=== PATIENT | female | born 1930 | race Caucasian/White ===

== ENCOUNTER 2019-09-25 14:10 | Emergency (ER) | payer OTHER ==
[~2019-09-25] VITALS: Ht 152.4 cm; Wt 54.4 kg
--- NOTE | ~2019-09-25 | EMS ---
[address] [address] EMS Patient Care Report Name: PATTIE SANCHEZ Room #: DEP RICKY Meza#: [id number] Admission: 09/25/19 Attend Phys: Discharge: 09/25/19 Date of : [birth year] Report #: [id number] THIS REPORT FOR: //name// Report Transmitted: 09/25/2019 21:41 EMS Care Summary [facility] Incident [id number] @ 09/25/2019 13:41 Incident Location [address] [place] [address] Patient PATTIE SANCHEZ Female, 89 Years 1930 Patient Address [address] [place] [address] Patient History Dementia,Alzheimer's,Bipolar II Disorder, Patient Allergies No known allergies, Patient Medications Acetaminophen, Famotidine, Amlodipine, Aspirin, Chief Complaint syncope Disposition Transported No Lights/[place] Dispatch Reason Stroke/CVA Transported To [facility] Narrative EMS was dispatched for a patient possibly having a stroke. Prior to EMS arrival proper PPE was donned including eye protection, gloves and a surgical [address] [address] EMS Patient Care Report Name: PATTIE SANCHEZ Room #: DEP Derrick#: [id number] Admission: 09/25/19 Attend Phys: Discharge: 09/25/19 Date of : [birth year] Report #: [id number] mask. Upon EMS arrival the patient was sitting in a wheel chair outside of the front door of her long-term. Nursing staff advised the patient was sitting outside with her friends when she slumped over in her chair for about 3 minutes. The patient advised she was ok and feeling good but probably should get checked out. EMS performed a stroke scale test with nothing found. EMS loaded the patient onto the cot and placed her in the ambulance. EMS performed a 12 lead ECG, blood glucose level and took a set of vitals. The patient maintained a GCS of 15 throughout transport. The patient was taken to [facility] for further evaluation. Initial Vitals @13:55P: 62,Pain: 0/10,GCS: 15,SpO2: 95,PR Suspected: false @14:01P: 62,R: 18,BP: 115/67,Pain: 0/10,GCS: 15,SpO2: 97,Revised Trauma: 12,PR Suspected: false @13:53P: 65,R: 18,BP: 115/70,Pain: 0/10,GCS: 15,Glucose: 108,SpO2: 95,Revised Trauma: 12,PR Suspected: false Assessments @13:47MENTAL:Person Oriented,Time Oriented,Place Oriented,Event Oriented,SKIN:HEENT:Head/Face: No Abnormalities,Neck/Airway: No Abnormalities,LUNG SOUNDS:General: No Abnormalities,ABDOMEN:General: No Abnormalities,PELVIS//GI:No Abnormalities,EXTREMITIES:Left Arm: No Abnormalities,Right Arm: No Abnormalities,Left Leg: No Abnormalities,Right Leg: No Abnormalities,PULSE:NEURO:No Abnormalities, Impression Syncope / Fainting Procedures @13:47ALS AssessmentResponse: UnchangedSucceeded@13:5512-Lead ECGResponse: UnchangedSucceeded Timeline 13:39,Call Received 13:39,Psap Call 13:41,Dispatched 13:42,En Route 13:46,On Scene 13:47,At Patient 13:47,ALS Assessment,Response: UnchangedSucceeded, 13:53,BP: 115/70 M,PULSE: 65,RR: 18 R,SPO2: 95 Ox,ETCO2: ,B,PAIN: 0,GCS: 15, 13:55,12-Lead ECG,Response: UnchangedSucceeded, 13:55,BP: / M,PULSE: 62,RR: R,SPO2: 95 Ox,ETCO2: ,BG: ,PAIN: 0,GCS: 15, 13:58,Depart Scene 14:01,BP: 115/67 M,PULSE: 62,RR: 18 R,SPO2: 97 Ox,ETCO2: ,BG: ,PAIN: 0,GCS: 15, [address] [address] EMS Patient Care Report Name: WES SANCHEZN Room #: DEP RICKY Meza#: [id number] Admission: 09/25/19 Attend Phys: Discharge: 09/25/19 Date of : [birth year] Report #: [id number] 14:05,At Destination 14:21,Call Closed Disclaimer v1.1 Copyright 2020 [employer] This EMS Care Summary contains data elements from the applicable legal record (which may be displayed differently). It is designed to provide pertinent information for the following purposes: continuity of care, clinical quality, and state data reporting. The complete legal record is available to ED staff and administrators of the receiving hospital in [employer] Patient Tracker. All data is provided "as is."
[2019-09-25 14:45] LABS: ABSOLUTE NEUTROPHILS 3.6 thou/uL (1.4-8.2); BASOPHILS 0.9 % (0.0-2.0); EOSINOPHILS 1.4 % (0.0-3.0); HEMATOCRIT 30.7 % (37.0-47.0); HEMOGLOBIN 10.5 gm/dL (12.0-15.0); LYMPHOCYTES 22.4 % (24.0-44.0); MCH 33.8 pg (26.0-34.0); MCHC 34.2 g/dL (28.0-37.0); MCV 98.7 fL (80.0-100.0); PLATELET COUNT 220 thou/uL (150-400); POLYS 63.3 % (36.0-66.0); RBC 3.11 mil/uL (4.20-5.00); WBC 5.7 thou/uL (4.0-11.0)
[2019-09-25 14:56] LABS: ANION GAP 5 mmol/L (7-16); BUN 15 mg/dL (7-18); CHLORIDE 96 mmol/L (98-107); CO2 31 mmol/L (21-32); GLUCOSE 106 mg/dL (74-106); POTASSIUM 4.6 mmol/L (3.5-5.1); SODIUM 132 mmol/L (136-145)
[2019-09-25 15:01] LABS: URINE BILIRUBIN NEGATIVE (Negative); URINE BLOOD NEGATIVE (Negative); URINE CLARITY CLEAR; URINE COLOR YELLOW; URINE GLUCOSE-RANDOM* NEGATIVE (Negative); URINE KETONES NEGATIVE (Negative); URINE LEUKOCYTES-REFLEX TRACE (Negative); URINE NITRITE-REFLEX NEGATIVE (Negative); URINE PROTEIN (DIPSTICK) NEGATIVE (Negative); URINE UROBILINOGEN 0.2 E.U./dl (0.2-1.0)
[2019-09-25 15:06] LABS: ALBUMIN 3.5 g/dL (3.4-5.0); MAGNESIUM 2.1 mg/dL (1.8-2.4); SGOT 29 U/L (15-37); SGPT 29 U/L (30-65); TOTAL BILIRUBIN 0.2 mg/dL (<0.1-1.0); TOTAL PROTEIN 7.1 g/dL (6.4-8.2); TROPONIN-I <0.06 ng/mL (<0.06)
[2019-09-25] MEDS ORDERED: NORVASC5 MG PO (15:18)
[2019-09-25] MEDS ORDERED: LUVOX 50MG TABL50 M1 PO (15:19)
[2019-09-25] MEDS ORDERED: MEMANTINE HCL10 MG PO (15:19)
[2019-09-25] MEDS ORDERED: RIVASTIGMINE1 EAC1 TOP (15:20)
[2019-09-25] MEDS ORDERED: OXCARBAZEPINE150 MG PO (15:21)
[2019-09-25] MEDS ORDERED: METOCLOPRAMIDE 55 M1 PO (15:21)
[2019-09-25] MEDS ORDERED: LATUDA40 MG PO (15:21)
[2019-09-25] MEDS ORDERED: FLUVOXAMINE MA100 MG PO (15:22)
[2019-09-25] MEDS ORDERED: OXYBUTYNIN 5 MG5 M2 PO (15:22)
[2019-09-25] MEDS ORDERED: FAMOTIDINE 20 M20 MG PO (15:22)
[2019-09-25] MEDS ORDERED: MARINOL 2.5 MG2.5 M1 PO (15:23)
[2019-09-25] MEDS ORDERED: OLANZAPINE2.5 MG PO (15:23)
[2019-09-25] MEDS ORDERED: ROSUVASTATIN CAL5 MG PO (15:24)
[2019-09-25 17:05] VITALS: BP 135/73
--- NOTE | 2019-09-26 08:21 | EKG ---
[facility] [place] [address] [address] ELECTROCARDIOGRAM REPORT Name: PATTIE SANCHEZ [id number] Admission: 09/25/19 Attend Phys: Discharge: 09/25/19 Date of : [birth year] Report #: [id number] THIS REPORT FOR: cc: FAM - Family physician unknown FAM - Family physician unknown Jorge Eli MD ~ THIS REPORT FOR: //name// [facility] ED Test Date: 2019-09-25 Test Time: 14:16:47 Pat Name: PATTIE SANCHEZ Department: Room: Gender: Transfill Technician: [facility] : 1930 Requested By: Mitch Alarcon Order Number: [id number] MD: Jorge Eli Measurements Intervals [place] Rate: 60 P: 43 CO: 138 QRS: 25 QRSD: 137 T: -1 QT: 442 QTc: 442 Interpretive Statements Sinus rhythm Left atrial enlargement Right bundle branch block Compared to ECG 05/19/2008 09:34:54 Atrial abnormality now present Electronically Signed On 09-26-2019 8:19:20 CDT by Jorge Eli [email or web address] <ELECTRONICALLY SIGNED> By: Jorge Eli MD 09/26/19 0819 1416 1416 Jorge Eli MD /EPI
== END 2019-09-25 17:06 | disposition home or self-care (01) ==
LOC: ER 14:10
PROVIDERS: Emergency Medicine
DX: R55 Syncope and collapse (principal); Z79.899 Other long term (current) drug therapy; Z88.6 Allergy status to analgesic agent; Z88.8 Allergy status to other drugs, medicaments and biological substances; Z90.711 Acquired absence of uterus with remaining cervical stump

== ENCOUNTER → 2020-02-12 | Outpatient (CLI) | payer OTHER ==
[~2020-02-12] MED LIST: FAMOTIDINE 20 M20 MG PO; FLUVOXAMINE MA100 MG PO; LATUDA40 MG PO; LUVOX 50MG TABL50 M1 PO; MARINOL 2.5 MG2.5 M1 PO; MEMANTINE HCL10 MG PO; METOCLOPRAMIDE 55 M1 PO; NORVASC5 MG PO; OLANZAPINE2.5 MG PO; OXCARBAZEPINE150 MG PO; OXYBUTYNIN 5 MG5 M2 PO; RIVASTIGMINE1 EAC1 TOP; ROSUVASTATIN CAL5 MG PO
== END ==
LOC: MRI 10:17
DX: M19.031 Primary osteoarthritis, right wrist (principal); R22.31 Localized swelling, mass and lump, right upper limb; M79.89 Other specified soft tissue disorders